=== PATIENT | female | born 1985 | race Caucasian/White ===

== ENCOUNTER 2019-08-01 13:54 | Emergency (ER) | payer MEDICAID ==
[~2019-08-01] VITALS: Ht 152.4 cm; Wt 50.0 kg
[~2019-08-01 13:54] MED LIST: BUPR1FIL3 SL; FLUO20CA39 PO; LACT10SO PO; MAGN296S68 PO
[2019-08-01 14:01] VITALS: BP 115/80
[2019-08-01] MEDS ORDERED: ONDA8TAB13 PO (15:18)
[2019-08-01] MEDS ORDERED: CLON-529 PO (15:18)
== END 2019-08-01 15:28 | disposition home or self-care (01) ==
LOC: MERGE 13:55 → ER 13:55
DX: F11.20 Opioid dependence, uncomplicated (principal); F17.200 Nicotine dependence, unspecified, uncomplicated
CPT/HCPCS: 99283